=== PATIENT | female | born 1950 | race Caucasian/White ===

== ENCOUNTER → 2021-02-21 | Outpatient (CLI) | payer MEDICARE, OTHER ==
[~2021-02-21] MED LIST: ASPIRIN325 MG PO; BACTRIM DS TAB1 EACH PO; CBD OIL SL; CELEXA20 MG PO; CYCLOBENZAPRINE10 MG PO; FLEXERIL PO; GABAPENTIN800 MG PO; IBUPROFEN800 MG PO; KEFLEX500 MG PO; LISINOPRIL-HCT1 EAC1 PO; METHOCARBAMOL750 MG PO; NEURONTIN 300300 MG PO; OMEPRAZOLE40 MG PO; PERCOCET 10-321 EACH PO; PERCOCET 5-3251 EACH PO; VALSARTAN-HCTZ1 EAC4 PO; VENTOLIN HFA 66.7 GM INH
== END ==
LOC: KOH-I 13:47
DX: M79.672 Pain in left foot (principal); M19.072 Primary osteoarthritis, left ankle and foot
CPT/HCPCS: 73630

== ENCOUNTER → 2021-07-04 | Outpatient (CLI) | payer MEDICARE, OTHER, MEDICAID | LOC: KOH-I 10:15 | DX: M79.672 Pain in left foot (principal); M89.9 Disorder of bone, unspecified | CPT/HCPCS: 73718 ==

== ENCOUNTER → 2021-12-04 | Outpatient (CLI) | payer MEDICARE, OTHER | LOC: KOH-I 13:53 | DX: M79.672 Pain in left foot (principal); M19.072 Primary osteoarthritis, left ankle and foot | CPT/HCPCS: 73630 ==

== ENCOUNTER → 2022-04-24 | Outpatient (CLI) | payer MEDICARE, OTHER | LOC: KOH-I 13:56 | DX: M79.672 Pain in left foot (principal); M25.572 Pain in left ankle and joints of left foot; M19.072 Primary osteoarthritis, left ankle and foot; M19.071 Primary osteoarthritis, right ankle and foot | CPT/HCPCS: 73610; 73630 ==